=== PATIENT | female | born 1965 | race Caucasian/White ===

== ENCOUNTER → 2016-05-16 | Outpatient (REF) | payer OTHER ==
[~2016-05-16] MED LIST: TRAZ50TA4 PO
== END ==
LOC: M SFHCWAGY 15:44
PROVIDERS: ATTEND Nurse Practitioner Women's Health
DX: B96.89 Other specified bacterial agents as the cause of diseases classified elsewhere (principal); N76.0 Acute vaginitis; L29.8 Other pruritus

== ENCOUNTER → 2016-06-16 | Day surgery (SDC) | payer BC, OTHER, SELFPAY ==
[~2016-06-16] VITALS: Ht 165.1 cm; Wt 56.2 kg
[~2016-06-16] MED LIST changes: +IBUPROFEN 600 MG TAB PO PRN; +KETOROLAC 60 MG/2 ML VIAL (J1885) As Ordered ONE; +LIDOCAINE 2% INJ 100 MG/5 ML SDV (FOR ANES.) As Ordered ONE; +LR 1,000 ML IV SCH; +MIDAZOLAM INJ 2 MG/2 ML VIAL (J2250) As Ordered ONE; +NORCO, ANEXSIA 5/325MG TABLET (HYDROcodone/ACETAMINOPHEN) PO PRN; +ONDANSETRON 4MG/2ML VIAL (J2405) As Ordered ONE; +ONDANSETRON 4MG/2ML VIAL (J2405) IV PRN; +PROPOFOL 200 MG/20 ML VIAL As Ordered ONE; +dexameTHASONE 4 MG/ML 1ML VIAL (J1100) As Ordered ONE; +fentaNYL 100 MCG/2 ML INJECTION (J3010) As Ordered ONE; +fentaNYL 100 MCG/2 ML INJECTION (J3010) IV PRN
[2016-06-16 10:15] LABS: MEAN CORPUSCULAR HEMOGLOBIN 28.2 pg (27.0-33.0); MEAN CORPUSCULAR HGB CONC 32.5 g/dl (32.0-36.5); MEAN CORPUSCULAR VOLUME 86.5 fl (80.0-96.0); RED CELL DISTRIBUTION WIDTH 12.5 % (11.5-14.5); WHITE BLOOD COUNT 5.5 K/mm3 (4.0-10.0)
[2016-06-16 10:37] LABS: ANION GAP 5 MEQ/L (8-16); BLOOD UREA NITROGEN 25 MG/DL (7-18); CALCIUM LEVEL 9.5 MG/DL (8.5-10.1); CARBON DIOXIDE LEVEL 32 MEQ/L (21-32); CHLORIDE LEVEL 108 MEQ/L (98-107); GLOMERULAR FILTRATION RATE > 60.0 (>58); GLUCOSE, FASTING 96 MG/DL (70-105); POTASSIUM SERUM 4.3 MEQ/L (3.5-5.1); SODIUM LEVEL 145 MEQ/L (136-145)
[2016-06-16 15:40] VITALS: BP 136/90
--- NOTE | 2016-06-17 09:09 | RO ---
DATE OF PROCEDURE: 06/16/2016 PREPROCEDURE DIAGNOSES/INDICATION FOR SURGERY: Postmenopausal bleeding, history of previous endometrial ablation. POSTPROCEDURE DIAGNOSES: Postmenopausal bleeding, history of previous endometrial ablation and polyp. PROCEDURE: Dilatation and curettage, hysteroscopy, polypectomy with MyoSure. SURGEON: Dr. Annika Nath INSULATION WORKER APPRENTICE: ANESTHESIA: General endotracheal anesthesia. BRIEF DESCRIPTION OF PROCEDURE AND FINDINGS: Aracely was brought to the operating room where sufficient general endotracheal anesthesia was induced. She was prepped, draped and positioned in the usual sterile fashion with the bladder emptied and the anterior aspect of the cervix grasped with a single tooth tenacula. She has a retroverted uterus. Initially, we had some difficulty getting dilation started, but we were then able to dilate the uterus and were able to visualize with the hysteroscope. There was quite a bit of synechia, consistent with the patient's previous ablation and anteriorly there is a polypoid area that was sort of blanched out and scarred looking. Cephalad from that, at the fundus, there was another small polypoid lesion from midline to the left cornua. We were able, with the MyoSure, under direct visualization, resect both of those and to sample the endometrium and the endocervical tissue. We then carried out curettage, following which the procedure was ended. Estimated blood loss for the procedure was 5 mL or less. Fluid replacement was crystalloid. Complications: None. Condition and Disposition: Aracely tolerated the procedure well and was recovering in the recovery room in good condition.
== END | disposition home or self-care (01) ==
LOC: M SDC 09:46
PROVIDERS: ATTEND Obstetrics & Gynecology
DX: N95.0 Postmenopausal bleeding (principal); N84.0 Polyp of corpus uteri; Z79.899 Other long term (current) drug therapy
CPT/HCPCS: 36415; 58558; 80048; 85027; 88305; J1100; J1885; J2250; J2405; J3010

== ENCOUNTER → 2016-06-27 | Outpatient (REF) | payer BC ==
[~2016-06-27] MED LIST changes: -IBUPROFEN 600 MG TAB PO PRN; -KETOROLAC 60 MG/2 ML VIAL (J1885) As Ordered ONE; -LIDOCAINE 2% INJ 100 MG/5 ML SDV (FOR ANES.) As Ordered ONE; -LR 1,000 ML IV SCH; -MIDAZOLAM INJ 2 MG/2 ML VIAL (J2250) As Ordered ONE; -NORCO, ANEXSIA 5/325MG TABLET (HYDROcodone/ACETAMINOPHEN) PO PRN; -ONDANSETRON 4MG/2ML VIAL (J2405) As Ordered ONE; -ONDANSETRON 4MG/2ML VIAL (J2405) IV PRN; -PROPOFOL 200 MG/20 ML VIAL As Ordered ONE; -dexameTHASONE 4 MG/ML 1ML VIAL (J1100) As Ordered ONE; -fentaNYL 100 MCG/2 ML INJECTION (J3010) As Ordered ONE; -fentaNYL 100 MCG/2 ML INJECTION (J3010) IV PRN
== END ==
LOC: M LAB REF 16:29
PROVIDERS: ATTEND Nurse Practitioner Women's Health
DX: Z11.3 Encounter for screening for infections with a predominantly sexual mode of transmission (principal)

== ENCOUNTER → 2016-12-28 | Outpatient (CLI) | payer BC ==
[~2016-12-28] MED LIST changes: +TRAZ50TA11 PO; -TRAZ50TA4 PO
--- NOTE | 2016-12-28 23:59 | REP ---
Clinical: Lower abdominal and left lower quadrant pain. Technique: Transabdominal pelvic ultrasound followed by transvaginal examination for better evaluation of the endometrium and adnexa with color Doppler evaluation of the ovaries. Findings: Bladder is unremarkable and measures 9.5 x 6.1 x 8.1 cm . Heterogeneous retroverted uterus measures 11.2 x 4.7 x 6.7 cm and includes 1.6 x 1.4 x 0.9 centimeter posterior intramural fibroid. The endometrial complex measures 3.5 mm thickness. No discrete endometrial abnormalities are appreciated. Bilateral ovaries are normal in appearance and vascularity without evidence for torsion. Right ovary measures 3.2 x 1.6 x 2.7 cm ; R I = 0.57 . Left ovary measures 3.3 x 1.3 x 2.1 cm ; R I = 0.47 . No pelvic fluid or adnexal mass lesion . Impression: 1. 1.5 cm intramural fibroid. 2. Otherwise normal pelvic ultrasound. Signed by Esdras Alexis MD 12/28/2016 11:50 P
== END ==
LOC: M WHC 09:23
PROVIDERS: ATTEND Nurse Practitioner Family
DX: D25.9 Leiomyoma of uterus, unspecified (principal)

== ENCOUNTER → 2017-05-16 | Outpatient (REF) | payer BC | LOC: M SFHCWAGY 10:53 | DX: Z12.4 Encounter for screening for malignant neoplasm of cervix (principal) ==

== ENCOUNTER → 2017-05-16 | Outpatient (CLI) | payer BC | LOC: M WHC 10:39 | DX: Z12.31 Encounter for screening mammogram for malignant neoplasm of breast (principal); Z78.0 Asymptomatic menopausal state | CPT/HCPCS: 77067 ==

== ENCOUNTER → 2018-08-09 | Outpatient (REF) | payer BC ==
[~2018-08-09] MED LIST changes: +TRAZ-160 PO; -TRAZ50TA11 PO
[2018-08-11 14:43] LABS: HPV HYBRID CAPTURE II Positive (Negative)
== END ==
LOC: M SFHCWAGY 10:40
PROVIDERS: ATTEND Nurse Practitioner Women's Health
DX: Z12.4 Encounter for screening for malignant neoplasm of cervix (principal); R87.612 Low grade squamous intraepithelial lesion on cytologic smear of cervix (LGSIL)

== ENCOUNTER → 2018-08-09 | Outpatient (CLI) | payer BC ==
--- NOTE | 2018-08-09 12:24 | REPMRS ---
Patient History The patient states she had a clinical breast exam in 07/2018. Family history of prostate cancer at age 50 or over in father. Digital Woman Screen Mammo: August 09, 2018 - Exam #: [id number] Bilateral CC and MLO view(s) were taken. Technologist: Danya Simon, Technologist Prior study comparison: May 16, 2017, digital woman screen mammo performed at [facility]. April 01, 2016, digital woman screen mammo performed at [facility]. January 26, 2015, digital woman screen mammo performed at [facility]. FINDINGS: The breast tissue is heterogeneously dense. This may lower the sensitivity of mammography. There is a moderate amount of heterogeneously dense fibroglandular tissue which is fairly symmetric. There is no interval development of dominant mass, architectural distortion, or clustered microcalcification typical of malignancy. There has been no change in the appearance of the mammogram from the prior studies. 3-D tomosynthesis shows no additional findings. Assessment: BI-RADS/ACR category 1 mammogram. Negative Mammogram. Recommendation Routine screening mammogram of both breasts in 1 year (for women over age 40). This patient's Lifetime Breast Cancer RIsk is estimated at 10.2 %. This mammogram was interpreted with the aid of an FDA-approved computer-aided dectection system. Electronically Signed By: Narinder Schreiber MD 08/09/18 [id number]
== END ==
LOC: M WHC 10:24
PROVIDERS: ATTEND Nurse Practitioner Women's Health
DX: Z12.31 Encounter for screening mammogram for malignant neoplasm of breast (principal)

== ENCOUNTER → 2019-02-13 | Outpatient (REF) | payer BC ==
[~2019-02-13] MED LIST changes: -TRAZ-160 PO; +TRAZ-252 PO
[2019-02-13 17:22] LABS: BASO # 0.1 10^3/uL (0.0-0.2); BASO % 0.9 % (0.0-1.0); EOS # 0.1 10^3/uL (0.0-0.5); EOS % 1.7 % (0.0-3.0); HEMATOCRIT 40.2 % (36.0-47.0); HEMOGLOBIN 13.1 g/dl (12.0-15.5); LYMPH # 1.6 10^3/uL (1.5-5.0); MEAN CORPUSCULAR HEMOGLOBIN 27.7 pg (27.0-33.0); MEAN CORPUSCULAR HGB CONC 32.6 g/dl (32.0-36.5); MONO # 0.4 10^3/uL (0.0-0.8); MONO % 5.7 % (0.0-5.0); NEUTROPHILS # 5.5 10^3/uL (1.5-8.5); NEUTROPHILS % 70.2 % (36.0-66.0); PLATELET COUNT, AUTOMATED 358 10^3/uL (150-450); RED BLOOD COUNT 4.73 10^6/uL (4.00-5.40); WHITE BLOOD COUNT 7.8 10^3/uL (4.0-10.0)
[2019-02-13 17:26] LABS: INR 0.97; PROTHROMBIN TIME 12.6 SECONDS (11.8-14.0)
[2019-02-13 17:27] LABS: PARTIAL THROMBOPLASTIN TIME 29.2 SECONDS (25.0-38.4)
[2019-02-13 18:20] LABS: ALBUMIN 3.9 GM/DL (3.2-5.2); ALT/SGPT 106 U/L (12-78); BILIRUBIN,TOTAL 0.5 MG/DL (0.2-1.0); BLOOD UREA NITROGEN 9 MG/DL (7-18); CALCIUM LEVEL 9.6 MG/DL (8.5-10.1); CARBON DIOXIDE LEVEL 31 MEQ/L (21-32); CHLORIDE LEVEL 105 MEQ/L (98-107); CREATININE FOR GFR 0.72 MG/DL (0.55-1.30); GLOMERULAR FILTRATION RATE > 60.0 (>51); GLUCOSE, FASTING 80 MG/DL (70-100); POTASSIUM SERUM 4.6 MEQ/L (3.5-5.1); RHEUMATOID FACTOR QUANT < 10.0 IU/ML (<15.0); SODIUM LEVEL 140 MEQ/L (136-145); TOTAL PROTEIN 8.1 GM/DL (6.4-8.2)
== END ==
LOC: M LAB REF 16:43
PROVIDERS: ATTEND Internal Medicine Pulmonary Disease
DX: R91.8 Other nonspecific abnormal finding of lung field (principal)

== ENCOUNTER → 2019-02-22 | Outpatient (CLI) | payer BC ==
[~2019-02-22] MED LIST changes: +NYST1POW9 TOP; +TYLENOL PM PO
--- NOTE | 2019-02-26 17:14 | REP ---
CT CHEST WITHOUT IV CONTRAST: CT chest performed without IV contrast. Comparison 02/02/2019 from [facility]. Once again, there are multiple bilateral pulmonary nodules identified. Most of these have decreased in size when compared to the prior study. None have increased in size. There are multiple subcentimeter nodular opacities which have decreased. Ill-defined parenchymal opacity in the right perihilar region has decreased and improved. An irregular nodule in the right lower lobe on image 52 is essentially unchanged in diameter at 6 mm. Another nodule in the right lower lobe medially on image 60 has essentially not changed in diameter at 9 mm, also having irregular margins. A 5 mm left upper lobe nodule on image 28 is essentially unchanged. Other more inferior larger nodules appear slightly smaller than on the prior study. A 1.4 cm nodule in the left costophrenic angle was previously 1.7 cm. Pericarinal lymph nodes are essentially upper limits of normal in size. There is mild atherosclerotic calcification of the thoracic aorta without aneurysm. The heart is normal in size. There is no pleural or pericardial effusion. Left thyroid nodule measures 1.7 cm. Recommend thyroid ultrasound. Visualized upper abdominal structures are grossly unremarkable. IMPRESSION: Multiple bilateral pulmonary nodules have predominantly decreased in size when compared to the prior CT of 02/02/2019. Two nodules on the right and one on the left are unchanged. The findings suggest an inflammatory or infectious etiology. Continued followup is recommended. Left thyroid nodule measures 1.7 cm. Recommend thyroid ultrasound to further evaluate. Electronically Signed by Mo Horton MD 02/27/2019 11:21 A
== END ==
LOC: M RAD 15:49
PROVIDERS: ATTEND Internal Medicine Pulmonary Disease
DX: R91.8 Other nonspecific abnormal finding of lung field (principal)

== ENCOUNTER → 2019-07-11 | Outpatient (REF) | payer BC ==
--- NOTE | 2019-07-11 17:31 | REP ---
CT chest without contrast: Outside film interpretation. History: Outside film interpretation requested by Dr. Seaman regarding comparison of current [facility] CT study July 03, 2019 with prior [facility] CT study February 22, 2019. There is also a prior CT study from February 02, 2019. Comparison CT findings: There is a new zone of linear discoid atelectasis in the left lateral lung base. No other infiltrate or atelectasis is seen. There is no evidence of pleural or pericardial effusion. There are numerous subcentimeter pulmonary nodules ranging in size up to 5 mm. These are all smaller than they were February 22, 2019. No new pulmonary nodule is appreciated. The 5 mm nodule in the left upper lobe on today's study was 7 mm previously. No other finding. Impression: There are multiple small subcentimeter pulmonary nodules visible bilaterally ranging up in size to 5 mm in diameter. All of these are smaller than on the February 22, 2019 prior study. No new nodule is seen. Electronically Signed by Kevin Schreiber MD 07/11/2019 06:02 P
== END ==
LOC: M RAD 16:06
PROVIDERS: ATTEND Internal Medicine Pulmonary Disease
DX: R91.8 Other nonspecific abnormal finding of lung field (principal)

== ENCOUNTER → 2019-10-22 | Outpatient (REF) | payer BC | LOC: M SFHCWAGY 17:25 | PROVIDERS: ATTEND Nurse Practitioner Women's Health | DX: Z12.4 Encounter for screening for malignant neoplasm of cervix (principal); R87.612 Low grade squamous intraepithelial lesion on cytologic smear of cervix (LGSIL) ==

== ENCOUNTER → 2019-11-08 | Outpatient (CLI) | payer BC ==
--- NOTE | 2019-11-08 13:03 | REPMRS ---
Patient History The patient states she had a clinical breast exam in September 2019. Family history of prostate cancer at age 50 or over in father. 3D TOMOSYNTHESIS WAS PERFORMED. [facility]%. EMY Lyn. Digital Woman Screen Mammo: November 08, 2019 - Exam #: [id number] Bilateral CC and MLO view(s) were taken. Technologist: Anna Nunez, Technologist Prior study comparison: August 09, 2018, bilateral digital woman screen mammo performed at [facility]. May 16, 2017, digital woman screen mammo performed at [facility]. FINDINGS: The breast tissue is heterogeneously dense. This may lower the sensitivity of mammography. There has been no change in the appearance of the mammogram from the prior studies. There is a moderate amount of residual fibroglandular tissue which is fairly symmetric. There is no interval development of dominant mass, areas of architectural distortion, or clustered microcalcification typical of malignancy. Assessment: BI-RADS/ACR category 1 mammogram. Negative Mammogram. Recommendation Routine screening mammogram in 1 year (for women over age 40). This mammogram was interpreted with the aid of an FDA-approved computer-aided dectection system. Electronically Signed By: Mo Horton MD 11/08/19 [id number]
== END ==
LOC: M WHC 11:20
PROVIDERS: ATTEND Nurse Practitioner Women's Health
DX: Z12.31 Encounter for screening mammogram for malignant neoplasm of breast (principal)

== ENCOUNTER → 2020-12-29 | Outpatient (REF) | payer BC | LOC: M SFHCWAGY 18:58 | PROVIDERS: ATTEND Nurse Practitioner Women's Health | DX: Z12.4 Encounter for screening for malignant neoplasm of cervix (principal); R87.612 Low grade squamous intraepithelial lesion on cytologic smear of cervix (LGSIL) ==

== ENCOUNTER → 2021-02-03 | Outpatient (CLI) | payer BC ==
--- NOTE | 2021-02-04 08:33 | REPMRS ---
Patient History The patient states she had a clinical breast exam in November 2020. Family history of prostate cancer at age 50 or over in father. Patient states no breast complaints today. Patient has signed MRS History Sheet. Digital Woman Screen Mammo: February 03, 2021 - Exam #: [id number] Bilateral CC and MLO view(s) were taken. Technologist: Danya Simon, Technologist Prior study comparison: November 08, 2019, bilateral digital woman screen mammo performed at [facility]. August 09, 2018, bilateral digital woman screen mammo performed at [facility]. May 16, 2017, digital woman screen mammo performed at [facility]. FINDINGS: The breast tissue is heterogeneously dense. This may lower the sensitivity of mammography. The Volpara volumetric breast density category is: C. There is a moderate amount of heterogeneously dense fibroglandular tissue which is fairly symmetric. There is no interval development of dominant mass, architectural distortion, or grouped microcalcification typical of malignancy. There has been no change in the appearance of the mammogram from the prior studies. 3-D tomosynthesis shows no additional findings. Assessment: BI-RADS/ACR category 1 mammogram. Negative Mammogram. Recommendation Routine screening mammogram of both breasts in 1 year (for women over age 40). This patient's [facility] Lifetime Breast Cancer RIsk is estimated at 9.8 %. This mammogram was interpreted with the aid of an FDA-approved computer-aided dectection system. Electronically Signed By: Narinder Schreiber MD 02/04/21 0833
== END ==
LOC: M WHC 15:53
PROVIDERS: ATTEND Nurse Practitioner Women's Health
DX: Z12.31 Encounter for screening mammogram for malignant neoplasm of breast (principal)

== ENCOUNTER → 2022-09-05 | Outpatient (REF) | payer BC | LOC: M PLALAB 11:17 | PROVIDERS: ATTEND Obstetrics & Gynecology | DX: Z12.4 Encounter for screening for malignant neoplasm of cervix (principal); R87.612 Low grade squamous intraepithelial lesion on cytologic smear of cervix (LGSIL) | CPT/HCPCS: 87624; G0123 ==

== ENCOUNTER → 2022-09-05 | Outpatient (CLI) | payer BC | LOC: M WHC 10:25 | PROVIDERS: ATTEND Obstetrics & Gynecology | DX: Z12.31 Encounter for screening mammogram for malignant neoplasm of breast (principal) ==

== ENCOUNTER → 2022-09-19 | Outpatient (CLI) | payer BC | LOC: M WHC 13:04 | PROVIDERS: ATTEND Obstetrics & Gynecology | DX: Z12.31 Encounter for screening mammogram for malignant neoplasm of breast (principal) | CPT/HCPCS: 76642; 77065; G0279 ==

== ENCOUNTER → 2023-10-23 | Outpatient (CLI) | payer OTHER | LOC: M WHC 08:07 | PROVIDERS: ATTEND Obstetrics & Gynecology | DX: Z12.31 Encounter for screening mammogram for malignant neoplasm of breast (principal) ==

== ENCOUNTER → 2023-10-23 | Outpatient (REF) | payer OTHER ==
[2023-10-25 15:26] LABS: HPV APTIMA Not Detected (Not Detected)
== END ==
LOC: M SFHCWAGY 17:16
PROVIDERS: ATTEND Obstetrics & Gynecology
DX: Z12.4 Encounter for screening for malignant neoplasm of cervix (principal)

== ENCOUNTER → 2025-04-16 | Outpatient (CLI) | payer OTHER ==
[~2025-04-16] MED LIST changes: +NYST1POW3 TOP; -NYST1POW9 TOP
== END ==
LOC: M WHC 16:33
PROVIDERS: ATTEND Physician Assistant
DX: Z12.31 Encounter for screening mammogram for malignant neoplasm of breast (principal)

== ENCOUNTER → 2025-04-16 | Outpatient (REF) | payer OTHER ==
[2025-04-18 13:57] LABS: HPV APTIMA Not Detected (Not Detected)
== END ==
LOC: M SFHCWAGY 17:41
PROVIDERS: ATTEND Physician Assistant
DX: Z12.4 Encounter for screening for malignant neoplasm of cervix (principal); R87.610 Atypical squamous cells of undetermined significance on cytologic smear of cervix (ASC-US)